=== PATIENT | female | born 1955 | race Caucasian/White ===

== ENCOUNTER 2025-02-01 13:27 | Day surgery (SDC) | payer MEDICARE, OTHER ==
[2025-02-01] MEDS: Tetracaine HCl/PF 0.5% 4 ML Bottle EYEBOTH SCH (07:22)
[2025-02-01] MEDS: Pilocarpine 4% Ophth Soln 15 ML Bot EYELF SCH (07:22)
[2025-02-01] MEDS: Lidocaine 1% PF 2 ML SDV INJECT SCH (07:22)
[2025-02-01] MEDS: Polymyxin B/Trimethoprim 10 ML Bottle EYELF SCH (07:22)
[~2025-02-01 13:27] MED LIST: Cefuroxime 10 MG/ML SYRINGE EYELF SCH
[2025-02-01] MEDS: Tropicamide 1% Ophth Soln 3 ML Bottle EYELF SCH (14:14)
[2025-02-01 16:02] VITALS: BP 137/63; PULSE 70
== END 2025-02-01 16:01 | disposition home or self-care (01) ==
LOC: JD.SDS 13:27
PROVIDERS: ATTEND Ophthalmology
DX: H25.813 Combined forms of age-related cataract, bilateral (principal); H43.812 Vitreous degeneration, left eye; H11.823 Conjunctivochalasis, bilateral; H02.834 Dermatochalasis of left upper eyelid; H02.831 Dermatochalasis of right upper eyelid; I10 Essential (primary) hypertension; E66.9 Obesity, unspecified; Z68.31 Body mass index [BMI] 31.0-31.9, adult; Z88.5 Allergy status to narcotic agent; Z79.899 Other long term (current) drug therapy
CPT/HCPCS: 66984; A9270; 00142; J3490; V2632

== ENCOUNTER 2025-03-01 11:13 | Day surgery (SDC) | payer MEDICARE, OTHER ==
[2025-03-01] MEDS: Polymyxin B/Trimethoprim 10 ML Bottle EYERT SCH (11:39)
[2025-03-01] MEDS: Tropicamide 1% Ophth Soln 3 ML Bottle EYERT SCH (11:57)
[2025-03-01] MEDS: Tetracaine HCl/PF 0.5% 4 ML Bottle EYEBOTH SCH (13:09)
[2025-03-01] MEDS: Cefuroxime 10 MG/ML SYRINGE EYERT SCH (13:27)
[2025-03-01] MEDS: Lidocaine 1% PF 2 ML SDV INJECT SCH (13:27)
[2025-03-01] MEDS: Pilocarpine 4% Ophth Soln 15 ML Bot EYERT SCH (13:41)
[2025-03-01 13:53] VITALS: BP 135/79; PULSE 79
== END 2025-03-01 13:55 ==
LOC: JD.SDS 11:13
PROVIDERS: ATTEND Ophthalmology
DX: H25.811 Combined forms of age-related cataract, right eye (principal); H52.03 Hypermetropia, bilateral; H43.812 Vitreous degeneration, left eye; H11.823 Conjunctivochalasis, bilateral; H02.834 Dermatochalasis of left upper eyelid; H02.831 Dermatochalasis of right upper eyelid; H52.223 Regular astigmatism, bilateral; H52.4 Presbyopia; H43.813 Vitreous degeneration, bilateral; Z96.1 Presence of intraocular lens; Z79.899 Other long term (current) drug therapy
CPT/HCPCS: 66984; A9270; J0697; J2003; 00142; J3490; V2632